=== PATIENT | female | born 1980 | race Caucasian/White ===

== ENCOUNTER → 2018-11-19 | Outpatient (REF) | payer OTHER ==
[2018-11-29 14:10] LABS: D001-IgE D pteronyssinus <0.10 kU/L (Class 0); E001-IgE Cat Epith/Dander < 0.10 kU/L (Class 0); E003-IGE HORSE EPITHELIA/DAND <0.10 kU/L (Class 0); E004-IGE COW DANDER <0.10 kU/L (Class 0); E005-IgE Dog Dander < 0.10 kU/L (Class 0); F002-IgE Milk < 0.10 kU/L (Class 0); F004-IgE Wheat < 0.10 kU/L (Class 0); F013-IgE Peanut < 0.10 kU/L (Class 0); F014-IgE Soybean < 0.10 kU/L (Class 0); F026-IgE Pork < 0.10 kU/L (Class 0); F027-IgE Beef < 0.10 kU/L (Class 0); F245-IgE Egg, Whole < 0.10 kU/L (Class 0); FX02-IgE Food Mix (Sea Foods) Negative (.); G008-IgE Kentucky Bluegrass 7.57 kU/L (Class IV); M001-IgE Penicillium chrysogen < 0.10 kU/L (Class 0); M002 IgE Cladosporium herbaru < 0.10 kU/L (Class 0); M003 IgE Aspergillus fumigatu < 0.10 kU/L (Class 0); M006-IgE Alternaria alternata < 0.10 kU/L (Class 0); T001-IgE Maple/Box Elder < 0.10 kU/L (Class 0); T003-IgE Common Silver Birch < 0.10 kU/L (Class 0); T006-IgE Cedar, Mountain < 0.10 kU/L (Class 0); T007-IgE Oak, White < 0.10 kU/L (Class 0); T008-IgE Elm, American < 0.10 kU/L (Class 0); T015-IgE Ash, White < 0.10 kU/L (Class 0); T041-IgE Hickory, White < 0.10 kU/L (Class 0); T070-IgE White Mulberry < 0.10 kU/L (Class 0); W001-IgE Ragweed, Short 0.75 kU/L (Class II); W009-IgE Plantain, English < 0.10 kU/L (Class 0); W014-IgE Pigweed, Rough < 0.10 kU/L (Class 0); W018-IgE Sheep Sorrel < 0.10 kU/L (Class 0)
== END ==
LOC: M LABDRAW1 11:30
PROVIDERS: ATTEND Allergy & Immunology
DX: J30.1 Allergic rhinitis due to pollen (principal); J30.2 Other seasonal allergic rhinitis; R05 Cough

== ENCOUNTER → 2019-01-28 | Outpatient (REF) | payer OTHER | LOC: M SFHCLERA 14:17 | PROVIDERS: ATTEND Physician Assistant | DX: J02.9 Acute pharyngitis, unspecified (principal) ==

== ENCOUNTER → 2021-03-25 | Outpatient (REF) | payer OTHER ==
[2021-03-25 17:39] LABS: BASO % 0.6 % (0.0-1.0); EOS # 0.1 10^3/uL (0.0-0.5); EOS % 0.9 % (0.0-3.0); HEMATOCRIT 38.9 % (36.0-47.0); HEMOGLOBIN 12.9 g/dl (12.0-15.5); LYMPH # 1.7 10^3/uL (1.5-5.0); LYMPH % 25.4 % (24.0-44.0); MEAN CORPUSCULAR HEMOGLOBIN 29.9 pg (27.0-33.0); MEAN CORPUSCULAR HGB CONC 33.2 g/dl (32.0-36.5); MEAN CORPUSCULAR VOLUME 90.3 fl (80.0-96.0); MONO # 0.4 10^3/uL (0.0-0.8); MONO % 5.3 % (2.0-8.0); NEUTROPHILS # 4.6 10^3/uL (1.5-8.5); NEUTROPHILS % 67.4 % (36.0-66.0); PLATELET COUNT, AUTOMATED 307 10^3/uL (150-450); RED BLOOD COUNT 4.31 10^6/uL (4.00-5.40); WHITE BLOOD COUNT 6.8 10^3/uL (4.0-10.0)
[2021-03-25 17:58] LABS: ALT/SGPT 21 U/L (12-78); BILIRUBIN,DIRECT < 0.1 MG/DL (0.0-0.2); BILIRUBIN,TOTAL 0.2 MG/DL (0.2-1.0); TOTAL PROTEIN 7.2 GM/DL (6.4-8.2)
[2021-03-25 18:03] LABS: BLOOD UREA NITROGEN 12 MG/DL (7-18); CALCIUM LEVEL 9.2 MG/DL (8.5-10.1); CARBON DIOXIDE LEVEL 30 MEQ/L (21-32); CHLORIDE LEVEL 103 MEQ/L (98-107); CPK CREATINE PHOSPHOKINASE 77 U/L (26-192); CREATININE FOR GFR 0.68 MG/DL (0.55-1.30); GLOMERULAR FILTRATION RATE > 60.0 (>60); GLUCOSE, FASTING 80 MG/DL (70-100); IRON (FE) 60 UG/DL (50-170); MAGNESIUM LEVEL 2.6 MG/DL (1.8-2.4); PHOSPHORUS LEVEL 3.4 MG/DL (2.5-4.9); SODIUM LEVEL 140 MEQ/L (136-145)
[2021-03-25 18:12] LABS: ERYTHROCYTE SEDIMENTATION RATE 4 mm/hr (0-20)
[2021-03-25 19:52] LABS: TOTAL 25(OH) VITAMIN D 27.7 NG/ML (30.0-100.0); VITAMIN B12 LEVEL 619 PG/ML (247-911)
== END ==
LOC: M SFHCRHEU 15:37
PROVIDERS: ATTEND Internal Medicine
DX: L40.9 Psoriasis, unspecified (principal); M25.40 Effusion, unspecified joint; M79.10 Myalgia, unspecified site

== ENCOUNTER → 2021-04-02 | Outpatient (CLI) | payer OTHER ==
--- NOTE | 2021-04-02 15:19 | REP ---
INDICATION: EFFUSION OF JOINT COMPARISON: None. TECHNIQUE: Four views bilateral wrists. FINDINGS: There is no evidence of acute fracture, dislocation, or intrinsic bone disease.The joint spaces appear normal bilaterally without significant arthritic change. IMPRESSION: Negative bilateral wrist series. <Electronically signed by Joe Yu > 04/02/21 [id number]
--- NOTE | 2021-04-02 15:22 | REP ---
INDICATION: EFFUSION OF JOINT COMPARISON: None. TECHNIQUE: Four views bilateral hands. FINDINGS: There is no evidence of acute fracture, dislocation, or intrinsic bone disease.There is a small spur of the base of the right 1st distal phalanx. I do not see significant degenerative joint space narrowing bilaterally. IMPRESSION: Small spur base of right 1st distal phalanx. Otherwise unremarkable bilateral hand series. <Electronically signed by Joe Yu > 04/02/21 [id number]
--- NOTE | 2021-04-02 15:26 | REP ---
INDICATION: EFFUSION OF JOINT COMPARISON: None. TECHNIQUE: Four views bilateral feet. FINDINGS: There is no evidence of acute fracture, dislocation, or intrinsic bone disease.The joint spaces are well preserved. No significant arthritic changes are seen. IMPRESSION: Negative bilateral foot series. <Electronically signed by Joe Yu > 04/02/21 [id number]
== END ==
LOC: M WUC 14:24
PROVIDERS: ATTEND Internal Medicine
DX: M25.40 Effusion, unspecified joint (principal); M25.741 Osteophyte, right hand

== ENCOUNTER → 2021-05-07 | Outpatient (REF) | payer BC, OTHER ==
[2021-05-12 05:07] LABS: MUMPS VIRUS IgG ANTIBODY 18.8 AU/mL (Immune >10.9); RUBEOLA IgG ANTIBODY >300.0 AU/mL (Immune >16.4)
== END ==
LOC: M LAB REF 17:14
PROVIDERS: ATTEND Physician Assistant Medical
DX: Z02.0 Encounter for examination for admission to educational institution (principal)

== ENCOUNTER → 2021-07-16 | Outpatient (CLI) | payer BC, OTHER | LOC: M WUC 14:11 | PROVIDERS: ATTEND Physician Assistant Medical | DX: M54.50 Low back pain, unspecified (principal) ==

== ENCOUNTER 2021-07-23 07:48 | Emergency (ER) | payer BC, OTHER ==
[~2021-07-23] VITALS: Ht 175.3 cm; Wt 63.6 kg
[2021-07-23] MEDS ORDERED: LEXA1TAB2 (07:57)
[2021-07-23] MEDS ORDERED: KETOROLAC 30 MG/ML 1ML VIAL IM ONE (11:55)
[2021-07-23] MEDS ORDERED: KETO10TAB PO (12:04)
[2021-07-23] MEDS ORDERED: METH-1164 PO (12:05)
[2021-07-23 12:14] VITALS: BP 110/80
== END 2021-07-23 12:54 | disposition home or self-care (01) ==
LOC: M ED 07:48
DX: M54.41 Lumbago with sciatica, right side (principal); K58.9 Irritable bowel syndrome, unspecified; F41.9 Anxiety disorder, unspecified; F32.A Depression, unspecified; Z79.899 Other long term (current) drug therapy; Z91.048 Other nonmedicinal substance allergy status; Z98.890 Other specified postprocedural states
CPT/HCPCS: 96372; 99283; J1885

== ENCOUNTER → 2022-03-07 | Outpatient (CLI) | payer BC, OTHER ==
[~2022-03-07] MED LIST: KETO10TAB PO; LEXA1TAB2; METH-1164 PO
[2022-03-07 13:53] LABS: C REACTIVE PROTEIN QUANTITATIV < 0.30 MG/DL (0.00-0.30); MAGNESIUM LEVEL 2.2 MG/DL (1.8-2.4)
[2022-03-07 14:35] LABS: TOTAL 25(OH) VITAMIN D 89.8 NG/ML (30.0-100.0)
== END ==
LOC: M PLALAB 09:59
PROVIDERS: ATTEND Internal Medicine
DX: E55.9 Vitamin D deficiency, unspecified (principal); E83.40 Disorders of magnesium metabolism, unspecified; M25.40 Effusion, unspecified joint

== ENCOUNTER 2022-03-24 13:12 | Emergency (ER) | payer BC, OTHER ==
[~2022-03-24] VITALS: Ht 175.3 cm; Wt 61.7 kg
[2022-03-24 13:12] VITALS: BP 100/62
[2022-03-24] MEDS ORDERED: D3 +TAB PO (13:49)
[2022-03-24] MEDS ORDERED: IBUP-1114 PO (13:49)
== END 2022-03-24 15:27 | disposition home or self-care (01) ==
LOC: M ED 13:12
DX: S93.402A Sprain of unspecified ligament of left ankle, initial encounter (principal); X50.0XXA Overexertion from strenuous movement or load, initial encounter; Y93.68 Activity, volleyball (beach) (court); Y99.0 Civilian activity done for income or pay; Z79.899 Other long term (current) drug therapy

== ENCOUNTER → 2022-04-26 | Outpatient (CLI) | payer BC, OTHER ==
[~2022-04-26] MED LIST changes: +D3 +TAB PO; +IBUP-1114 PO
[2022-04-26 18:46] LABS: FOLLICLE STIMULATING HORMONE 8.5 mIU/mL; LUTEINIZING HORMONE 1.8 mIU/mL; PROGESTERONE 0.24 NG/ML
== END ==
LOC: M WUC 15:26
PROVIDERS: ATTEND Obstetrics & Gynecology
DX: E34.9 Endocrine disorder, unspecified (principal); F52.0 Hypoactive sexual desire disorder; R53.83 Other fatigue

== ENCOUNTER → 2022-09-07 | Outpatient (CLI) | payer BC, OTHER | LOC: M WHC 16:22 | PROVIDERS: ATTEND Obstetrics & Gynecology | DX: Z12.31 Encounter for screening mammogram for malignant neoplasm of breast (principal) ==

== ENCOUNTER → 2022-10-18 | Outpatient (CLI) | payer BC, OTHER | LOC: M WHC 14:05 | PROVIDERS: ATTEND Obstetrics & Gynecology | DX: R92.8 Other abnormal and inconclusive findings on diagnostic imaging of breast (principal); R92.0 Mammographic microcalcification found on diagnostic imaging of breast; N60.11 Diffuse cystic mastopathy of right breast | CPT/HCPCS: 76642; 77065; G0279 ==

== ENCOUNTER → 2023-11-14 | Outpatient (CLI) | payer BC, OTHER | LOC: M WHC 15:16 | PROVIDERS: ATTEND Obstetrics & Gynecology | DX: Z12.31 Encounter for screening mammogram for malignant neoplasm of breast (principal); R92.323 Mammographic fibroglandular density, bilateral breasts ==

== ENCOUNTER → 2024-04-09 | Outpatient (CLI) | payer OTHER ==
[2024-04-09 17:35] LABS: FOLLICLE STIMULATING HORMONE 5.1 mIU/ML; LUTEINIZING HORMONE 2.9 mIU/ML
[2024-04-09 17:36] LABS: ESTRADIOL 95.9 PG/ML; PROGESTERONE 0.25 NG/ML
== END ==
LOC: M WUC 13:02
PROVIDERS: ATTEND Obstetrics & Gynecology
DX: E34.9 Endocrine disorder, unspecified (principal); F52.0 Hypoactive sexual desire disorder; R53.83 Other fatigue

== ENCOUNTER → 2025-01-08 | Outpatient (CLI) | payer OTHER ==
[2025-01-08 15:45] LABS: ESTRADIOL 100.1 PG/ML; LUTEINIZING HORMONE 1.2 mIU/ML
[2025-01-09 07:32] LABS: PROGESTERONE 10.11 NG/ML
[2025-01-15 18:15] LABS: TESTOSTERONE FREE (DIRECT) 4.6 pg/mL (0.1-6.4); TESTOSTERONE TOTAL FOR T&D 62.0 ng/dL (2-45)
== END ==
LOC: M WUC 11:22
PROVIDERS: ATTEND Obstetrics & Gynecology
DX: E34.9 Endocrine disorder, unspecified (principal); F52.0 Hypoactive sexual desire disorder; R53.83 Other fatigue

== ENCOUNTER → 2025-06-30 | Outpatient (CLI) | payer OTHER ==
[2025-06-30 14:28] LABS: PROGESTERONE 0.63 NG/ML
[2025-06-30 14:29] LABS: ESTRADIOL 63.1 PG/ML
[2025-07-01 07:02] LABS: LUTEINIZING HORMONE 2.4 mIU/ML
== END ==
LOC: M WUC 11:16
PROVIDERS: ATTEND Obstetrics & Gynecology
DX: N95.1 Menopausal and female climacteric states (principal)